=== PATIENT | female | born 1975 | race Caucasian/White ===

== ENCOUNTER 2017-04-25 16:35 | Emergency (ER) | payer OTHER ==
[~2017-04-25 16:35] MED LIST: DOCU50CA8 PO
--- NOTE | 2017-04-25 16:42 | ER Report ---
History and Physical Time Seen By MD: 16:41 HPI/ROS CHIEF COMPLAINT: Throat swelling HISTORY OF PRESENT ILLNESS: 41-year-old female patient presents to emergency room with complaint of throat swelling. Patient has a history of MS. She states that on Thursday she had an infusion of a new medication. She states that he was after that that she started noticing that she was having some swelling in her throat. She states that with this infusion that she was given a dose of steroids and Benadryl. She states that everything seemed to go well until the last couple days when she started feeling the swelling. She states she's noticed that she has some enlarged lymph nodes. She denies having any fevers, chills. She states that she has been eating and drinking without any difficulties. She is able swallow. She states that she is been able to sleep, although she has felt a little bit anxious and has been sleeping propped up. She states she has felt like she is having to work harder to breathe. REVIEW OF SYSTEMS: Respiratory: As noted above Cardiovascular: No chest pain, no palpitations. Gastrointestinal: No vomiting, no abdominal pain. Musculoskeletal: No back pain. Allergies: Coded Allergies: No Known Drug Allergies (Unverified , 07/17/14) Home Meds Reported Medications Ocrelizumab (Ocrevus) 300 Mg/10 Ml Vial, IV 04/25/17 Discontinued Reported Medications Docusate Sodium (COLACE) 50 Mg Capsule, 50 MG PO, CAPSULE 07/17/14 Past Medical/Surgical History Patient has a past medical history of MS. Patient denies any surgical history. Reviewed Nurses Notes: Yes Smoking Status: Never Smoker Constitutional Vital Sign - Last 24 Hours 04/25/17 04/25/17 04/25/17 04/25/17 16:35 16:38 16:39 16:50 Temp 97.8 Pulse ??? 71 73 Resp 18 B/P (MAP) 125/87 (100) 125/87 Pulse Ox 99 100 O2 Delivery Room Air 04/25/17 04/25/17 04/25/17 04/25/17 17:05 17:20 17:35 17:50 Pulse ? 04/25/17 04/25/17 04/25/17 04/25/17 18:00 18:05 18:20 18:35 Pulse 67 69 64 B/P (MAP) 116/83 (94) Pulse Ox 99 99 97 04/25/17 04/25/17 18:37 18:41 Pulse 63 B/P (MAP) 115/79 (91) 115/79 (91) Pulse Ox 97 O2 Delivery Room Air Intake and Output 04/25/17 04/25/17 04/26/17 15:00 23:00 07:00 Intake Total 900 ml Balance 900 ml Physical Exam General Appearance: The patient is alert, has no immediate need for airway protection and no current signs of toxicity. Patient does feel warm to the touch. ENT: Tympanic membranes are pearly-vasquez, auditory canals are patent, mucous membranes are moist. Has no obvious swelling noted in the posterior pharynx. Respiratory: Chest is non tender, lungs are clear to auscultation. Cardiac: regular rate and rhythm Gastrointestinal: Abdomen is soft and non tender, no masses, bowel sounds normal. Musculoskeletal: Neck: Neck is supple and non tender. Patient does have some enlarged cervical lymph nodes. Extremities have full range of motion and are non tender. Skin: No rashes or lesions. DIFFERENTIAL DIAGNOSIS: After history and physical exam differential diagnosis was considered for pharyngitis, allergic reaction, swelling of throat. Medical Decision Making Data Points Result Diagram: 04/25/17 1655 04/25/17 1655 Laboratory Hematology Test 04/25/17 16:55 04/25/17 17:05 04/25/17 17:11 Red Blood Count 4.35 M/uL (4.17-5.56) Mean Corpuscular Volume 93.4 fL (80.0-96.0) Mean Corpuscular Hemoglobin 32.2 pg (26.0-33.0) Mean Corpuscular Hemoglobin Concent 34.5 g/dL (32.0-36.0) Red Cell Distribution Width 12.5 % (11.5-14.5) Mean Platelet Volume 9.3 fL (7.2-11.1) Neutrophils (%) (Auto) 70.1 % (39.4-72.5) Lymphocytes (%) (Auto) 21.0 % (17.6-49.6) Monocytes (%) (Auto) 6.6 % (4.1-12.4) Eosinophils (%) (Auto) 1.5 % (0.4-6.7) Basophils (%) (Auto) 0.8 % (0.3-1.4) Nucleated RBC Relative Count (auto) 0.0 /100WBC Neutrophils # (Auto) 4.9 K/uL (2.0-7.4) Lymphocytes # (Auto) 1.5 K/uL (1.3-3.6) Monocytes # (Auto) 0.5 K/uL (0.3-1.0) Eosinophils # (Auto) 0.1 K/uL (0.0-0.5) Basophils # (Auto) 0.1 K/uL (0.0-0.1) Nucleated RBC Absolute Count (auto) 0.00 K/uL Sodium Level 137 mmol/L (137-145) Potassium Level 4.0 mmol/L (3.5-5.0) Chloride Level 104 mmol/L (98-107) Carbon Dioxide Level 25 mmol/L (22-31) Blood Urea Nitrogen 18 mg/dl (7-18) Creatinine 0.90 mg/dl (0.52-1.04) Glomerular Filtration Rate Calc > 60.0 Random Glucose 85 mg/dl (75-110) Calcium Level 9.1 mg/dl (8.4-10.2) Total Bilirubin 0.6 mg/dl (0.2-1.3) Aspartate Amino Transf (AST/SGOT) 25 U/L (0-35) Alanine Aminotransferase (ALT/SGPT) 22 U/L (0-56) Alkaline Phosphatase 36 U/L (0-126) Total Protein 6.6 gm/dl (6.3-8.2) Albumin 3.8 g/dl (3.5-5.0) Influenza Type A Antigen Negative (NEGATIVE) Influenza Type B Antigen Negative (NEGATIVE) Group A Streptococcus Screen Negative (NEGATIVE) Human Chorionic Gonadotropin, Qual Negative (NEGATIVE) Chemistry Test 04/25/17 16:55 04/25/17 17:05 04/25/17 17:11 White Blood Count 7.0 k/uL (4.5-11.0) Red Blood Count 4.35 M/uL (4.17-5.56) Hemoglobin 14.0 g/dL (12.0-16.0) Hematocrit 40.6 % (34.0-47.0) Mean Corpuscular Volume 93.4 fL (80.0-96.0) Mean Corpuscular Hemoglobin 32.2 pg (26.0-33.0) Mean Corpuscular Hemoglobin Concent 34.5 g/dL (32.0-36.0) Red Cell Distribution Width 12.5 % (11.5-14.5) Platelet Count 191 K/uL (150-450) Mean Platelet Volume 9.3 fL (7.2-11.1) Neutrophils (%) (Auto) 70.1 % (39.4-72.5) Lymphocytes (%) (Auto) 21.0 % (17.6-49.6) Monocytes (%) (Auto) 6.6 % (4.1-12.4) Eosinophils (%) (Auto) 1.5 % (0.4-6.7) Basophils (%) (Auto) 0.8 % (0.3-1.4) Nucleated RBC Relative Count (auto) 0.0 /100WBC Neutrophils # (Auto) 4.9 K/uL (2.0-7.4) Lymphocytes # (Auto) 1.5 K/uL (1.3-3.6) Monocytes # (Auto) 0.5 K/uL (0.3-1.0) Eosinophils # (Auto) 0.1 K/uL (0.0-0.5) Basophils # (Auto) 0.1 K/uL (0.0-0.1) Nucleated RBC Absolute Count (auto) 0.00 K/uL Glomerular Filtration Rate Calc > 60.0 Calcium Level 9.1 mg/dl (8.4-10.2) Total Bilirubin 0.6 mg/dl (0.2-1.3) Aspartate Amino Transf (AST/SGOT) 25 U/L (0-35) Alanine Aminotransferase (ALT/SGPT) 22 U/L (0-56) Alkaline Phosphatase 36 U/L (0-126) Total Protein 6.6 gm/dl (6.3-8.2) Albumin 3.8 g/dl (3.5-5.0) Influenza Type A Antigen Negative (NEGATIVE) Influenza Type B Antigen Negative (NEGATIVE) Group A Streptococcus Screen Negative (NEGATIVE) Human Chorionic Gonadotropin, Qual Negative (NEGATIVE) EKG/Imaging Imaging EXAMINATION: CT neck with IV contrast HISTORY: Through swelling. TECHNIQUE: Spiral scan was obtained from the hard palate through the upper chest during injection of nonionic iodinated intravenous contrast. Sagittal and coronal reformatted images are also submitted. One of the following dose optimization techniques was utilized in the performance of this exam: Automated exposure control; adjustment of the mA and/ or kV according to the patient's size; or use of an iterative reconstruction technique. Specific details can be referenced in the facility's radiology CT exam operational policy. CONTRAST: 75 mL of IV Isovue-370 COMPARISON: None. FINDINGS: Masses/lesions: None. Airway: Normal. Vessels: Negative. Musculoskeletal / Body wall: Negative. Lymph node assessment: Negative. Visualized orbits / brain / paranasal sinuses: Negative. Upper chest: Negative. IMPRESSION: Normal contrast-enhanced soft tissue neck CT. Report Dictated By: Tawanda Quispe MD at 04/25/2017 6:07 PM Report E-Signed By: Tawanda Quispe MD at 04/25/2017 6:14 PM ED Course/Re-evaluation ED Course Patient was admitted to exam room, history and physical were obtained. Differential diagnoses were considered. On examination patient does have enlarged lymph nodes, tenderness to the neck. A CBC, CMP, CT scan of the soft tissues of the neck were done. The lab work was unremarkable, and influenza was also done which was negative. And the CT scan of the neck was negative. I believe that we are looking at upper respiratory infection. Reviewing the adverse reactions with the new medication that she is taking for her MS believe that is likely what is causing this. We will go ahead and discharge her home. She is to increase fluids, get playing of rest. She is to follow-up with her primary care provider in the next week. Patient verbalized understanding and agreement. Decision to Disposition Date: Apr 25, 2017 Decision to Disposition Time: 18:32 Depart Departure Latest Vital Signs Vital Signs Date Time Temp Pulse Resp B/P (MAP) Pulse Ox O2 Delivery O2 Flow Rate FiO2 04/25/17 18:41 63 115/79 (91) 97 Room Air 04/25/17 16:39 97.8 18 Impression: Primary Impression: Upper respiratory infection Condition: Improved Disposition: HOME OR SELF-CARE Referrals: WANG JAIME MD (PCP) Patient Instructions: Upper Respiratory Infection (ED) Additional Instructions: Increase fluid intake. Get plenty of rest. Follow up with your primary care provider in the next week. Continue with normal activity. Take Tylenol or Ibuprofen as needed for any pain or fevers. Return tot he ER if condition worsens. Talk with your MS doctor about your results from the infusion. Problem Qualifiers Primary Impression: Upper respiratory infection URI type: unspecified viral URI Qualified Codes: J06.9 - Acute upper respiratory infection, unspecified; B97.89 - Other viral agents as the cause of diseases classified elsewhere JOVITA BANGURA Apr 25, 2017 16:42
[2017-04-25] MEDS ORDERED: OCRE300V IV (16:45)
[2017-04-25] MEDS ORDERED: NS(*) 0.9% 1000 ML BAG 1,000 ML IV ONE (16:55)
[2017-04-25 17:05] LABS: PLATELET COUNT, AUTOMATED 191 K/uL (150-450)
[2017-04-25] MEDS ORDERED: NS 0.9% 50 ML VIAL 50 ML ONE (17:10)
[2017-04-25] MEDS ORDERED: IOPAMIDOL 76% 75 ML INFUS BTL 75 ML ONE (17:10)
[2017-04-25] MEDS ORDERED: diphenhydrAMINE 50 MG/ML VIAL IVP ONE (18:10)
--- NOTE | 2017-04-25 18:18 | RADIOLOGY IMAGING REPORT ---
FACILITY: [facility] [place] PATIENT NAME: Jammie Sauceda : 1975 MR: [id number] V: [id number] EXAM DATE: ORDERING PHYSICIAN: JOVITA BANGURA TECHNOLOGIST: Location: [facility] Patient: Jammie Sauceda : 1975 Visit/Account:[id number] Date of Sevice: 04/25/2017 EXAMINATION: CT neck with IV contrast HISTORY: Through swelling. TECHNIQUE: Spiral scan was obtained from the hard palate through the upper chest during injection o f nonionic iodinated intravenous contrast. Sagittal and coronal reformatted images are also submitte d. One of the following dose optimization techniques was utilized in the performance of this exam: Autom ated exposure control; adjustment of the mA and/or kV according to the patient's size; or use of an i terative reconstruction technique. Specific details can be referenced in the facility's radiology C T exam operational policy. CONTRAST: 75 mL of IV Isovue-370 COMPARISON: None. FINDINGS: Masses/lesions: None. Airway: Normal. Vessels: Negative. Musculoskeletal / Body wall: Negative. Lymph node assessment: Negative. Visualized orbits / brain / paranasal sinuses: Negative. Upper chest: Negative. IMPRESSION: Normal contrast-enhanced soft tissue neck CT. Report Dictated By: Tawanda Quispe MD at 04/25/2017 6:07 PM Report E-Signed By: Tawanda Quispe MD at 04/25/2017 6:14 PM WSN:[id number]
[2017-04-25 18:41] VITALS: BP 115/79
== END 2017-04-25 18:45 | disposition home or self-care (01) ==
LOC: ER 16:41
DX: J06.9 Acute upper respiratory infection, unspecified (principal); B97.89 Other viral agents as the cause of diseases classified elsewhere
CPT/HCPCS: 70491; 84703; 85025; 87081; 87502; 87880; 96360; 99284; J7030; J7050; Q9967; 82040; 82247; 82310; 82374; 82435; 82565; 82947; 84075; 84132; 84155; 84295; 84450; 84460; 84520

== ENCOUNTER 2017-05-08 22:18 | Emergency (ER) | payer OTHER ==
[2017-05-08 22:18] VITALS: BP 117/80
[~2017-05-08 22:18] MED LIST changes: +OCRE300V IV
[2017-05-08] MEDS ORDERED: LINA145C PO (22:26)
--- NOTE | 2017-05-08 22:32 | ER Report ---
History and Physical Time Seen By MD: 22:32 HPI/ROS CHIEF COMPLAINT: Allergic reaction, throat swelling HISTORY OF PRESENT ILLNESS: 41-year-old female presents ambulatory to the ER complaining of an allergic reaction,? Patient has a history of MS and is on immunosuppressive therapy. She recently started a new drug infusion. One month ago. She received infusion. And she had adverse reaction of a throat swelling sensation. She had no hives or itching. It resolved with Benadryl spontaneously. She received a half dose of the same infusion as maintenance dose 4 weeks later. Tonight she presents with symptoms of throat closing sensation. She notes no hives, no itching, no swelling of her skin. She notes no difficulty breathing. There is mild facial and neck flushing. Patient spoke with the neurologist on-call, who manages her and he advised her to come in for evaluation. REVIEW OF SYSTEMS: Respiratory: No cough, no dyspnea. Cardiovascular: No chest pain, no palpitations. Gastrointestinal: No vomiting, no abdominal pain. Musculoskeletal: No back pain. Allergies: Coded Allergies: No Known Drug Allergies (Unverified , 05/08/17) Home Meds Active Scripts Lorazepam (ATIVAN) 0.5 Mg Tablet, 1-2 TAB PO Q4-6H Y for ANXIETY, #10 Prov:MITZI MONTE DO 05/08/17 Prednisone 10 Mg Tab (PREDNISONE 10 MG TAB) 10 Mg Tablet, 10 MG PO QDAY Y for treat allergic reaction, #9 2 tabs daily for 3 days 1 tab daily for 3 days Prov:MITZI MONTE DO 05/08/17 Reported Medications Linaclotide (LINZESS) 145 Mcg Capsule, 145 MCG PO, CAPSULE 05/08/17 Ocrelizumab (Ocrevus) 300 Mg/10 Ml Vial, IV 04/25/17 Past Medical/Surgical History Multiple sclerosis Reviewed Nurses Notes: Yes Old Medical Records Reviewed: Yes Smoking Status: Never Smoker Constitutional Vital Sign - Last 24 Hours 05/08/17 22:18 Temp 98.6 Pulse 69 Resp 20 B/P (MAP) 117/80 Pulse Ox 98 O2 Delivery Room Air Physical Exam General Appearance: The patient is alert, has no immediate need for airway protection and no current signs of toxicity. Vital signs stable, afebrile, pulse ox normal, patient without stridor or respiratory distress HEENT: Pupils equal and round no injection. TMs normal, oropharynx without edema or swelling. There is no signs of obstruction. Respiratory: Chest is non tender, lungs are clear to auscultation. No wheezing or rails Cardiac: regular rate and rhythm Gastrointestinal: Abdomen is soft and non tender, no masses, bowel sounds normal. Musculoskeletal: Neck: Neck is supple and non tender. No induration of neck tissues, no lymphadenopathy, no operable foreign body or mass Extremities have full range of motion and are non tender. Skin: No rashes or lesions. DIFFERENTIAL DIAGNOSIS: After history and physical exam differential diagnosis was considered for allergic reaction, anxiety, anaphylaxis, adverse medication reaction Medical Decision Making ED Course/Re-evaluation ED Course Patient was admitted to an examination room. H&P was done. The differential diagnoses was considered. On clinical examination. Patient is stable vital signs per. She appears in no acute distress other than she appears mildly anxious. Her skin on her neck and face seem slightly flushed to me. Examination of the remainder of her by shows no hives or itching. Examination of the oropharynx reveals no edema or airway obstruction. Her lungs are clear. Auscultation. There is no wheezing. She is treated with Benadryl. I did offer the option of steroids. She declined. She's been given steroids before and does not like to make her feel. She is also given Ativan 0.5 mg for anxiety. On reevaluation 45 minutes. She feels much better. She's discharged home and advised to continue Benadryl. She was provided a prescription for prednisone taper. Should she have any worsening of her symptoms. She is also given a prescription for Ativan for anxiety. Patient was advised to contact her neurologist next week. She is cautioned return to the ER for any worsening Decision to Disposition Date: May 08, 2017 Decision to Disposition Time: 22:47 Depart Departure Latest Vital Signs Vital Signs Date Time Temp Pulse Resp B/P (MAP) Pulse Ox O2 Delivery O2 Flow Rate FiO2 05/08/17 22:18 98.6 69 20 117/80 98 Room Air Impression: Primary Impression: Adverse reaction to drug Additional Impression: Multiple sclerosis Condition: Improved Disposition: HOME OR SELF-CARE Referrals: WANG JAIME MD (PCP) New Scripts Lorazepam (ATIVAN) 0.5 Mg Tablet 1-2 TAB PO Q4-6H Y for ANXIETY, #10 Prov: MITZI MONTE DO 05/08/17 Prednisone 10 Mg Tab (PREDNISONE 10 MG TAB) 10 Mg Tablet 10 MG PO QDAY Y for treat allergic reaction, #9 2 tabs daily for 3 days 1 tab daily for 3 days Prov: MITZI MONTE DO 05/08/17 Patient Instructions: Adverse Drug Reaction (ED) Additional Instructions: Take Benadryl 25 mg every 4-6 hours as needed for sensation of swelling Contact your neurologist after the weekend Return to the ER for any worsening Problem Qualifiers Primary Impression: Adverse reaction to drug Encounter type: initial encounter Qualified Codes: T88.7XXA - Unspecified adverse effect of drug or medicament, initial encounter MITZI MONTE DO May 08, 2017 22:32
[2017-05-08] MEDS ORDERED: LORazepam 0.5 MG TAB PO ONE (22:40)
[2017-05-08] MEDS ORDERED: diphenhydrAMINE 25 MG CAP PO ONE (22:40)
[2017-05-08] MEDS ORDERED: PRED-1 PO (23:23)
[2017-05-08] MEDS ORDERED: LORA-1455 PO (23:23)
== END 2017-05-08 23:51 | disposition home or self-care (01) ==
LOC: ER 22:30
DX: T88.7XXA Unspecified adverse effect of drug or medicament, initial encounter (principal); G35 Multiple sclerosis
CPT/HCPCS: 99281; Q0163

== ENCOUNTER → 2017-06-19 | Outpatient (CLI) | payer OTHER ==
[~2017-06-19] MED LIST changes: +LINA145C PO; +LORA-1455 PO; +PRED-1 PO
--- NOTE | 2017-06-19 14:18 | RADIOLOGY IMAGING REPORT ---
FACILITY: [facility] [place] PATIENT NAME: Jammie Sauceda : 1975 MR: [id number] V: [id number] EXAM DATE: ORDERING PHYSICIAN: MITCHELL HILLIARD TECHNOLOGIST: Location: [facility] Patient: Jammie Sauceda : 1975 Visit/Account:[id number] Date of Sevice: 06/19/2017 EXAMINATION: Brain MRI without IV contrast History: Multiple sclerosis COMPARISON STUDIES: 02/19/2016 TECHNIQUE: Multi-planar, multi-sequence brain MRI was performed without IV contrast administration. FINDINGS: Paranasal sinuses / mastoid air cells: negative White matter: Multiple white matter lesions consistent with multiple sclerosis are again demonstrated . Compared to the previous study, there is a new lesion in the deep white matter of the left frontal lobe, axial FLAIR image 17. The remainder of the lesions appear stable. Contrast was not administered for this study. Ventricles / sulci / fissures: negative Masses / hemorrhage / midline shift: negative Extra-axial spaces: negative Calvarium and scalp: negative Vascular structures: negative Sagittal midline structures: negative Orbits: negative Visualized upper neck: negative IMPRESSION: There is a single new lesion in the white matter of the left frontal lobe, the remainder of the lesio ns appear stable and are consistent with multiple sclerosis. Report Dictated By: Lorenzo Malone MD at 06/19/2017 2:05 PM Report E-Signed By: Lorenzo Malone MD at 06/19/2017 2:14 PM WSN:[id number]
--- NOTE | 2017-06-19 14:30 | RADIOLOGY IMAGING REPORT ---
FACILITY: [facility] [place] PATIENT NAME: Jammie Sauceda : 1975 MR: [id number] V: [id number] EXAM DATE: ORDERING PHYSICIAN: MITCHELL HILLIARD TECHNOLOGIST: [place] [facility] [place] [place]ammie Sauceda : 1975 Visit/Account:[id number] Date of Sevice: 06/19/2017 C SPINE W/O CONTRAST History: Multiple sclerosis COMPARISON STUDIES: 02/19/2016 TECHNIQUE: Multi-planar, multi-sequence cervical spine MRI was performed without intravenous contras t administration. FINDINGS: Paraspinal soft tissues negative. Vertebral bodies have normal height and alignment. Mild cervical sp ondylosis similar to previous. Interval development of a small T2 hyperintense lesion right lateral c ord at the level of C2-C3. No other definite lesions. There is some artifact over the cord at the lev el of C6. IMPRESSION: Interval development of a small T2 hyperintense lesion in the right lateral cord at the l evel of C2-C3 consistent with multiple sclerosis. Report Dictated By: Lorenzo Malone MD at 06/19/2017 2:19 PM Report E-Signed By: Lorenzo Malone MD at 06/19/2017 2:25 PM WSN:[id number]
== END ==
LOC: MRI 04:03
PROVIDERS: ATTEND Psychiatry & Neurology Neurology
DX: G35 Multiple sclerosis (principal); R90.82 White matter disease, unspecified
CPT/HCPCS: 70551; 72141

== ENCOUNTER → 2018-05-07 | Outpatient (CLI) | payer OTHER ==
--- NOTE | 2018-05-10 10:23 | RADIOLOGY IMAGING REPORT ---
FACILITY: [facility] PATIENT NAME: ELENI CORNEJO : [id number] MR: [id number] V: [id number] EXAM DATE: ORDERING PHYSICIAN: LOLA AUGUSTINE TECHNOLOGIST: Faith Molina PROCEDURE:BILATERAL DIGITAL SCREENING MAMMOGRAM WITH CAD ASSISTED INTERPRETATION & 3D TOMOSYNTHESIS COMPARISON:Prior mammograms 02/10/17, 12/27/15. INDICATIONS:SCREENING FINDINGS: The breasts are heterogeneously dense which can obscure small masses. In the upper portion of the Right breast on the Right MLO view in the posterior 1/3 there is a focal area of increased density for which Spot compression view is recommended. DIAGNOSTIC CATEGORY 0--INCOMPLETE: NEED ADDITIONAL IMAGING EVALUATION. RECOMMENDATIONS: ADDITIONAL MAMMOGRAPHIC VIEWS REQUIRED: RIGHT BREAST. IMPRESSION: BIRADS 0: Incomplete. Additional views of the Right breast recommended as described. Dictated by: Therese Mcnair M.D. on 05/07/2018 at 13:31 Transcribed by: TIFF on 05/07/2018 at 13:56 Approved by: Therese Mcnair M.D. on 05/10/2018 at 10:22 [facility]
== END ==
LOC: MAMO 10:40
PROVIDERS: ATTEND Obstetrics & Gynecology
DX: Z12.31 Encounter for screening mammogram for malignant neoplasm of breast (principal); R92.8 Other abnormal and inconclusive findings on diagnostic imaging of breast
CPT/HCPCS: 77063; 77067

== ENCOUNTER → 2018-05-25 | Outpatient (CLI) | payer OTHER ==
--- NOTE | 2018-05-26 15:08 | RADIOLOGY IMAGING REPORT ---
FACILITY: [facility] PATIENT NAME: ELENI CORNEJO : [id number] MR: [id number] V: [id number] EXAM DATE: [id number] ORDERING PHYSICIAN: LOLA AUGUSTINE TECHNOLOGIST: Shalini Hamilton PROCEDURE:RIGHT DIGITAL DIAGNOSTIC MAMMOGRAM WITH CAD ASSISTED INTERPRETATION & 3D TOMOSYNTHESIS COMPARISON:Prior mammogram of 05/07/18, 02/10/17,12/27/15 INDICATIONS:FURTHER EVAL FINDINGS: The patient returns for an XCC view of the Right breast & a spot compression view in the Right MLO projection. Spot compression view in the Right MLO projection confirms a well circumscribed nodular density in the posterior third upper portion of the Right breast. This could not be identified on the Right XCC view. There is a fatty replaced lymph node in the 9 o'clock position of the Right breast 8cm from the nipple which may account for this finding. DIAGNOSTIC CATEGORY 2--BENIGN FINDING. RECOMMENDATIONS: ROUTINE MAMMOGRAM AND CLINICAL EVALUATION. IMPRESSION: BIRADS 2: Benign finding. Nodular density in the posterior third upper Right breast likely represents fatty replaced lymph node seen on today's Right breast Ultrasound in the 9 o'clock position of the Right breast 8cm from the nipple. Dictated by: Therese Mcnair M.D. on 05/25/2018 at 14:44 Transcribed by: ROZINA on 05/26/2018 at 9:04 Approved by: Therese Mcnair M.D. on 05/26/2018 at 15:06 [facility]
--- NOTE | 2018-05-26 15:09 | RADIOLOGY IMAGING REPORT ---
FACILITY: [facility] PATIENT NAME: ELENI CORNEJO : [id number] MR: [id number] V: [id number] EXAM DATE: ORDERING PHYSICIAN: LOLA AUGUSTINE TECHNOLOGIST: Arabella Javier RT(R)(CT) PROCEDURE:US RIGHT BREAST COMPARISON:Today's diagnostic mammogram. INDICATIONS:FURTHER EVAL FINDINGS: In the 10 o'clock position of the Right breast 8cm from the nipple there is a small 4mm cyst. In the 9 o'clock position of the Right breast 8cm from the nipple there is a 6.7mm fatty replaced lymph node which likely accounts for the mammographic findings. DIAGNOSTIC CATEGORY 2--BENIGN FINDING. RECOMMENDATIONS: ROUTINE MAMMOGRAM AND CLINICAL EVALUATION. IMPRESSION: BIRADS 2: Benign finding. There is a small fatty replaced lymph node in the 9 o'clock position of the Right breast 8cm from the nipple which likely accounts for today's mammographic findings. Dictated by: Therese Mcnair M.D. on 05/25/2018 at 14:45 Transcribed by: ROZINA on 05/26/2018 at 9:06 Approved by: Therese Mcnair M.D. on 05/26/2018 at 15:08 [facility]
== END ==
LOC: MAMO 00:17
PROVIDERS: ATTEND Obstetrics & Gynecology
DX: N60.01 Solitary cyst of right breast (principal)
CPT/HCPCS: 77061; 77065